=== PATIENT | female | born 1970 ===

== ENCOUNTER 2017-04-08 09:23 | Emergency (ER) | payer OTHER, SELFPAY ==
[2017-04-08 09:29] VITALS: BP 145/79; PULSE 76; TEMP 98; O2SAT 97
[2017-04-08 09:30] VITALS: BMI 38.9
[2017-04-08] MEDS ORDERED: Promethazine/Cod 6.25mg-10mg/5ml Syr UD PO STA (09:52)
[2017-04-08] MEDS ORDERED: Acetaminophen/Codeine elixir 120-12mg/5ml ONE (10:47)
[2017-04-08] MEDS ORDERED: Promethazine/Cod 6.25mg-10mg/5ml Syr UD ONE (10:56)
--- NOTE | 2017-04-08 10:59 | ED PDOC ---
HPI: CCC, URI, Sore Throat Time Seen by Provider: 04/08/17 09:36 Chief Complaint (Nursing): Cough, Cold, Congestion Chief Complaint (Provider): Cough, Cold, Congestion History Per: Patient History/Exam Limitations: no limitations Onset/Duration Of Symptoms: Days (x2 days) Current Symptoms Are (Timing): Still Present Additional Complaint(s): 46 y/o female with a past medical history of diabetes who presents to the emergency department with a complaint of a dry cough and sore throat x2 days. Associated with chills, body aches, headache, and nasal congestion. Reports she is not feeling that well and has constant pain in the throat due to dry cough. Denies difficulty swallowing or breathing, recent travel, or known sick contact. PMD: [facility] in [place], [place] Past Medical History Reviewed: Historical Data, Nursing Documentation, Vital Signs Vital Signs: Last Vital Signs Temp 98 F 04/08/17 09:28 Pulse 76 04/08/17 09:28 Resp BP 145/79 04/08/17 09:28 Pulse Ox 97 04/08/17 11:05 - Medical History PMH: Diabetes, Hypercholesterolemia Denies: HTN (denies) - Surgical History Surgical History: No Surg Hx - Family History Family History: States: Unknown Family Hx - Social History Current smoker - smoking cessation education provided: No Alcohol: None Drugs: Denies - Immunization History Hx Tetanus Toxoid Vaccination: No Hx Influenza Vaccination: No Hx Pneumococcal Vaccination: No - Home Medications Home Medications: Ambulatory Orders Medication Instructions Recorded Famotidine [Pepcid] 20 mg PO DAILY PRN #6 tab 06/12/14 Glimepiride 1 mg PO DAILY 06/12/14 Ibuprofen [Motrin] 600 mg PO Q8 PRN #6 tab 06/12/14 Metformin HCl [Metformin] 1,000 mg PO BID 06/12/14 Pravastatin Sodium [Pravastatin] 40 mg PO HS 06/12/14 Acetaminophen with Codeine 1 tab PO Q8H #10 tab 09/02/15 [Tylenol with Codeine No. 3 300 mg-30 mg] Azithromycin [Zithromax Z-Roberto] 250 mg PO DAILY #1 packet 11/26/15 Benzonatate 200 mg PO TID PRN #20 capsule 04/08/17 - Allergies Allergies/Adverse Reactions: Allergies Allergy/AdvReac Type Severity Reaction Status Date / Time No Known Allergies Allergy Verified 08/02/15 12:54 Review of Systems ROS Statement: Except As Marked, All Systems Reviewed And Found Negative Constitutional: Positive for: Chills, Other (Body aches) ENT: Positive for: Nose Congestion, Throat Pain (Sore throat). Negative for: Other (Difficulty swallowing) Respiratory: Positive for: Cough (Dry). Negative for: Other (Difficulty breathing) Neurological: Positive for: Headache Physical Exam - Reviewed Nursing Documentation Reviewed: Yes Vital Signs Reviewed: Yes - Physical Exam Appears: Positive for: Non-toxic, No Acute Distress Head Exam: Positive for: ATRAUMATIC, NORMAL INSPECTION, NORMOCEPHALIC Skin: Positive for: Normal Color, Warm, Dry Eye Exam: Positive for: Normal appearance, EOMI ENT: Positive for: Normal ENT Inspection, TM Is/Are (Clear). Negative for: Tonsillar Exudate, Tonsillar Swelling Neck: Positive for: Normal, Supple Cardiovascular/Chest: Positive for: Regular Rate, Rhythm. Negative for: Murmur Respiratory: Positive for: Normal Breath Sounds. Negative for: Accessory Muscle Use, Wheezing, Respiratory Distress Neurologic/Psych: Positive for: Alert, Oriented (x3) - ECG O2 Sat by Pulse Oximetry: 97 (RA) Pulse Ox Interpretation: Normal Medical Decision Making Medical Decision Making: Time: 09:51 Initial impression: Viral upper respiratory infection, Influenza like symptoms vs strep throat Initial plan: --Chest 2 views x-ray --Motrin 400 mg PO --Promethazine/Codeine 5 ml PO --Throat Culture --AccuCheck --Reevaluation Time: 09:55 --Glucose: 154 (H) Time: 10:30 --Influenza: Negative --Strep: Negative Time: 10:55 --Chest x-ray FINDINGS: LUNGS: Poor inspiration with low lung volumes, crowded bronchovascular markings and mild bibasilar atelectasis. . PLEURA: No significant pleural effusion identified. No pneumothorax apparent. CARDIOVASCULAR: Heart appears mildly enlarged. OSSEOUS STRUCTURES: Mild multilevel degenerative spondylosis of the thoracic spine. VISUALIZED UPPER ABDOMEN: Normal. OTHER FINDINGS: None. IMPRESSION: Poor inspiration with low lung volumes, crowded bronchovascular markings and mild bibasilar atelectasis. . Scribe Attestation: Documented by Kendra Long, acting as a scribe for Gareth Gaxiola MD. Provider Scribe Attestation: All medical record entries made by the Scribe were at my direction and personally dictated by me. I have reviewed the chart and agree that the record accurately reflects my personal performance of the history, physical exam, medical decision making, and the department course for this patient. I have also personally directed, reviewed, and agree with the discharge instructions and disposition. Disposition - Clinical Impression Clinical Impression: Cough, Upper respiratory infection - Patient ED Disposition Is Patient to be Admitted: No Doctor Will See Patient In The: Office Counseled Patient/Family Regarding: Studies Performed, Diagnosis, Need For Followup - Disposition Referrals: [facility] [Outside] Disposition: Routine/Home Disposition Time: 11:07 Condition: GOOD Additional Instructions: Take your medications as instructed. Take advil for pain. Follow up with your PCP in 2-3 days. Prescriptions: Benzonatate 200 mg PO TID PRN #20 capsule PRN Reason: Cough Instructions: Upper Respiratory Infection (ED)
== END 2017-04-08 11:32 | disposition home or self-care (01) ==
LOC: H.ER 09:23
DX: J06.9 Acute upper respiratory infection, unspecified (principal); E11.9 Type 2 diabetes mellitus without complications; Z79.84 Long term (current) use of oral hypoglycemic drugs

== ENCOUNTER 2018-04-03 14:23 | Emergency (ER) | payer SELFPAY ==
[2018-04-03 14:23] VITALS: BMI 38.9
[2018-04-03 14:37] VITALS: BP 131/82; PULSE 59; RESP 16; TEMP 98.1; O2SAT 98
[2018-04-03 16:09] LABS: SQUAMOUS EPITHIAL 5 /hpf (0-5); URINE BILIRUBIN NEGATIVE (NEGATIVE); URINE BLOOD NEGATIVE (NEGATIVE); URINE CLARITY SLIGHTY-CLOUDY (Clear); URINE COLOR STRAW (YELLOW); URINE GLUCOSE (UA) NEG (Normal); URINE LEUKOCYTE ESTERASE NEG Leu/uL (Negative); URINE PROTEIN NEGATIVE (NEGATIVE); URINE UROBILINOGEN 0.2-1.0 mg/dL (0.2-1.0)
[2018-04-03 16:24] LABS: BASO # 0.1 K/uL (0.0-0.2); BASO % 0.9 % (0.0-2.0); EOS # 0.1 K/uL (0.0-0.7); EOS % 1.4 % (0.0-4.0); HEMOGLOBIN 13.9 g/dL (12.0-16.0); LYMPH % 29.2 % (20.0-40.0); MEAN CELL VOLUME 83.9 fl (81.0-99.0); MEAN CORPUSCULAR HEMOGLOBIN 28.2 pg (27.0-31.0); MEAN CORPUSCULAR HGB CONC 33.7 g/dL (33.0-37.0); MONO # 0.9 K/uL (0.0-0.8); MONO % 8.4 % (0.0-10.0); NEUT # 6.1 K/uL (1.8-7.0); NEUT % 60.1 % (50.0-75.0); NRBC % 0.1 % (0.0-0.0); RBC 4.94 Mil/uL (3.80-5.20); RED CELL DISTRIBUTION WIDTH 13.4 % (11.5-14.5); WHITE BLOOD COUNT 10.2 K/uL (4.8-10.8)
[2018-04-03 16:34] LABS: ALB/GLOB RATIO 1.2 (1.0-2.1); ALBUMIN 4.3 g/dL (3.5-5.0); ALT/SGPT 72 U/L (9-52); AST/SGOT 58 U/L (14-36); BLOOD UREA NITROGEN 13 mg/dl (7-17); CALCIUM 9.3 mg/dL (8.4-10.2); GFR AFRICAN-AMERICAN > 60; GFR NON-AFRICAN AMERICAN > 60; LIPASE 72 U/L (23-300)
--- NOTE | 2018-04-03 17:24 | RAD ---
Date of service: 04/03/2018 HISTORY: possible admission COMPARISON: 04/08/2017 FINDINGS: LUNGS: No active pulmonary disease. PLEURA: No significant pleural effusion identified, no pneumothorax apparent. CARDIOVASCULAR: Normal. OSSEOUS STRUCTURES: No significant abnormalities. VISUALIZED UPPER ABDOMEN: Normal. OTHER FINDINGS: None. IMPRESSION: No active disease.
--- NOTE | 2018-04-03 17:59 | ED PDOC ---
HPI: Abdomen Time Seen by Provider: 04/03/18 14:56 Chief Complaint (Nursing): Abdominal Pain Chief Complaint (Provider): Abdominal Pain History Per: Patient History/Exam Limitations: no limitations Onset/Duration Of Symptoms: Days (x2) Current Symptoms Are (Timing): Still Present Location Of Pain/Discomfort: Epigastric Quality Of Discomfort: Unable To Describe Associated Symptoms: Back Pain Additional Complaint(s): 47 y/o female with a PMHx of diabetes presents to the ED complaining of worsening epigastric pain radiating to the left flank, onset two days ago. Patient states pain had been increasing to the point where she could not eat today. Patient reports of tolerating a small amount of tea otherwise is unable to eat. Patient states she has previously had a stomach infection and went to see someone for treatment of H-pylori and prescribed to take clarithromycin, amoxicillin and PPI. Patient states pain is worsening, thus prompting today's visit. Patient also reports of never having abdominal pain that radiates to the back in the past. Denies diarrhea and fever. PMD: [facility] Past Medical History Reviewed: Historical Data, Nursing Documentation, Vital Signs Vital Signs: Last Vital Signs Temp 98.1 F 04/03/18 14:34 Pulse 59 L 04/03/18 14:34 Resp 16 04/03/18 14:34 BP 131/82 04/03/18 14:34 Pulse Ox 98 04/03/18 18:54 - Medical History PMH: Diabetes, Hypercholesterolemia Denies: HTN (denies) - Surgical History Surgical History: No Surg Hx - Family History Family History: States: Unknown Family Hx - Immunization History Hx Tetanus Toxoid Vaccination: No Hx Influenza Vaccination: No Hx Pneumococcal Vaccination: No - Home Medications Home Medications: Ambulatory Orders Medication Instructions Recorded Famotidine [Pepcid] 20 mg PO DAILY PRN #6 tab 06/12/14 Glimepiride 1 mg PO DAILY 06/12/14 Ibuprofen [Motrin] 600 mg PO Q8 PRN #6 tab 06/12/14 Metformin HCl [Metformin] 1,000 mg PO BID 06/12/14 Pravastatin Sodium [Pravastatin] 40 mg PO HS 06/12/14 Acetaminophen with Codeine 1 tab PO Q8H #10 tab 09/02/15 [Tylenol with Codeine No. 3 300 mg-30 mg] Azithromycin [Zithromax Z-Roberto] 250 mg PO DAILY #1 packet 11/26/15 Benzonatate 200 mg PO TID PRN #20 capsule 04/08/17 Acetaminophen [Tylenol Extra 500 mg PO Q6 #28 tablet 04/03/18 Strength] oxyCODONE/Acetaminophen [Percocet 1 ea PO Q6 #6 tab 04/03/18 5/325 mg Tab] - Allergies Allergies/Adverse Reactions: Allergies Allergy/AdvReac Type Severity Reaction Status Date / Time No Known Allergies Allergy Verified 08/02/15 12:54 Review of Systems ROS Statement: Except As Marked, All Systems Reviewed And Found Negative Constitutional: Negative for: Fever Gastrointestinal: Positive for: Abdominal Pain, Other (decreased PO intake). Negative for: Diarrhea Musculoskeletal: Positive for: Back Pain (left flank) Physical Exam - Reviewed Nursing Documentation Reviewed: Yes Vital Signs Reviewed: Yes - Physical Exam Appears: Positive for: No Acute Distress (Obese), Uncomfortable Cardiovascular/Chest: Positive for: Regular Rate, Rhythm. Negative for: Murmur Respiratory: Positive for: Normal Breath Sounds. Negative for: Respiratory Distress Gastrointestinal/Abdominal: Positive for: Normal Exam, Soft, Tenderness ( Epigastric and right upper quadrant tenderness; No suprapubic, right lower quadrant and left lower quadrant tenderness. ), Other ((+) [place] ) Back: Positive for: Normal Inspection. Negative for: L CVA Tenderness, R CVA Tenderness Neurologic/Psych: Positive for: Alert, Oriented - Laboratory Results Result Diagrams: 04/03/18 16:19 04/03/18 16:19 - ECG O2 Sat by Pulse Oximetry: 98 (RA) Pulse Ox Interpretation: Normal Medical Decision Making Medical Decision Making: Time: 1533 Impression: Gastritis vs cholecystitis Plan: -- GI Cocktail given for pain -- Labs sent -- Consider US if elevated LFTs -- Re-assess patient -- Pepcid 20 mg IVP -- Pantoprazole 40 mg IVP -- Reglan 5 mg PO -- CXR Portable -- EKG Time: 161 Plan: -- Beta-HCG, Quantitative -- CMP -- Lipase -- CBC with differentials -- Urinalysis Time: 165 Plan: -- Labs demonstrate elevated LFTs. Patient to be given Toradol for worsened pain and US for cholecystitis workup. -- US Abdomen Complete -- Toradol 30 mg IVP -- Discussed findings with patient and further plan. Patient advised to not drink or eat anything. Time: 1823 US ABDOMEN RESULTS FINDINGS: Liver: Enlarged, 18.5 cm. Normal echogenicity. No mass. No intrahepatic bile duct dilatation. Gallbladder: No gallstones. No wall thickening. No pericholecystic fluid. No sonographic Morgan's sign. Common bile duct: No dilatation. No stones. Pancreas: Unremarkable as visualized. Kidneys: Normal echogenicity. No significant hydronephrosis. Spleen: No splenomegaly. Aorta: Unremarkable. No aneurysm. Inferior vena cava: Unremarkable. Free fluid: No significant free fluid. IMPRESSION: 1. No acute findings. 2. Non-acute findings are described above. Thank you for allowing us to participate in the care of your patient. Dictated and Authenticated by: Jose Carlos Montelongo MD 04/03/2018 6:23 PM Eastern Time ([place] & [place]) Pt with imrpoved symptoms. CT showed enlarged liver but no gallbladder abnormalities. Pt now tolerating PO and pain improved. Findings of elevated liver enzymes and enlarged liver discussed with the patient. Pt expressed understanding of the importance of close follow up and will return to the emergency department if pain, vomiting, fever, or other new symptoms develop. Scribe Attestation: Documented by Sherine Weeks acting as a scribe for Dr. Micaela Tejada MD. Provider Scribe Attestation: All medical record entries made by the Scribe were at my direction and personally dictated by me. I have reviewed the chart and agree that the record accurately reflects my personal performance of the history, physical exam, medical decision making, and the department course for this patient. I have also personally directed, reviewed, and agree with the discharge instructions and disposition. Disposition - Clinical Impression Clinical Impression: Transaminitis, Abdominal tenderness, Gastritis - Disposition Referrals: [facility] [Outside] Disposition: Routine/Home Disposition Time: 18:54 Condition: IMPROVED Additional Instructions: Take Tylenol for pain. Take Percocet only for severe pain. Do not take Tylenol if you take Percocet because they both contain acetominphen which can cause liver damage in high doses. FOllow up with primary medical doctor in one week. Return to the emergeny department if symptoms worsen or if new symptoms develop. Prescriptions: Acetaminophen [Tylenol Extra Strength] 500 mg PO Q6 #28 tablet oxyCODONE/Acetaminophen [Percocet 5/325 mg Tab] 1 ea PO Q6 #6 tab Forms: [employer] (Bulgarian), [employer] (Vietnamese) Print Language: WELSH
--- NOTE | 2018-04-04 08:48 | CARD ---
APPROVED REPORT Date of service: 04/03/2018 EKG Measurement Heart [id number] <Conclusion> Sinus bradycardia Otherwise normal ECG
--- NOTE | 2018-04-04 11:25 | US ---
Date of service: 04/03/2018 HISTORY: Diffuse abdominal pain. Worse right upper quadrant COMPARISON: Abdomen ultrasound 10/08/2016. TECHNIQUE: Sonographic evaluation of the abdomen. FINDINGS: LIVER: Measures 18.5 cm. Normal echogenicity of the liver parenchyma. No mass. No intrahepatic bile duct dilatation. GALLBLADDER: Gallbladder appears mildly distended without mural thickening or pericholecystic fluid collection. No cholelithiasis. No sonographic Morgan sign reported. COMMON BILE DUCT: Measures 4.9 mm. No stones. No dilatation. PANCREAS: The tail of the pancreas is obscured by overlying bowel gas with remainder unremarkable. Visualized pancreas remains somewhat echogenic potentially reflecting fatty atrophy. RIGHT KIDNEY: Measures 11.5cm. Normal echogenicity. No calculus, mass, or hydronephrosis. LEFT KIDNEY: Measures 11.8cm. Normal echogenicity. No calculus, mass, or hydronephrosis. SPLEEN: Normal in size and contour, measuring 8.9 cm. No mass. AORTA: No aneurysmal dilatation. IVC: Unremarkable. OTHER FINDINGS: None. IMPRESSION: 1. Hepatic steatosis pattern not definitively shown at this time. No hepatic mass or prominent intrahepatic biliary dilatation appreciable. 2. Distended but otherwise unremarkable appearing gallbladder. 3. Probable fatty replaced of the pancreas reiterated however the tail is obscured by overlying bowel gas and is not seen. Concordant preliminary report from [facility], 04/03/2018.
== END 2018-04-03 19:00 | disposition home or self-care (01) ==
LOC: H.ER 14:23
DX: R74.0 Nonspecific elevation of levels of transaminase and lactic acid dehydrogenase [LDH] (principal); R10.13 Epigastric pain; K29.70 Gastritis, unspecified, without bleeding
CPT/HCPCS: 71045; 76700; 80053; 81003; 81025; 83690; 84702; 85025; 93005; 96374; 96375; 99284; C9113; J1885

== ENCOUNTER 2019-01-03 10:22 | Emergency (ER) | payer SELFPAY ==
[2019-01-03 10:25] VITALS: BMI 48.6
[2019-01-03 10:26] VITALS: TEMP 98.4; O2SAT 96
--- NOTE | 2019-01-03 11:08 | ED PDOC ---
HPI: Back Time Seen by Provider: 01/03/19 10:37 Chief Complaint (Nursing): Back Pain Chief Complaint (Provider): back pain History Per: Patient History/Exam Limitations: no limitations Onset/Duration Of Symptoms: Days Current Symptoms Are (Timing): Still Present Quality Of Discomfort: "Pain" Severity: Moderate Pain Scale Rating Of: 7 Previous Symptoms: Back Pain Associated Symptoms: None Exacerbating Factor(s): Turning, Movement, Sitting, Standing Additional History Per: Patient Additional Complaint(s): 48 year old female with history of diabetes presents to the ED with complaints of left lower back pain radiating down to the left glute and upper thigh. Patient states it started Wednesday morning while walking through a flea market and progressed throughout the day. She reports she took advil two tabs on Wednesday with minimal relief and one percocet last night, she reports she was able to sleep but upon rising from bed this morning pain was still present which prompted ED visit. Patient states pain is worse with movement and she upon ambulation she reports she feels better walking hunched over because pain worsens as she tries to straightened her back. She denies urinary symptoms, f ever, nausea or vomiting. Past Medical History Reviewed: Historical Data, Nursing Documentation, Vital Signs Vital Signs: Last Vital Signs Temp 98.4 F 01/03/19 10:25 Pulse 69 01/03/19 10:25 Resp 17 01/03/19 10:25 BP 150/72 01/03/19 10:25 Pulse Ox 96 01/03/19 10:25 Primary Care Provider: FAMILY PROVIDER,NO - Medical History PMH: No Chronic Diseases, Diabetes, Hypercholesterolemia Denies: HTN (denies) - Surgical History Surgical History: No Surg Hx - Family History Family History: States: Unknown Family Hx - Living Arrangements Living Arrangements: With Family - Social History Alcohol: None Drugs: Denies - Immunization History Hx Tetanus Toxoid Vaccination: No Hx Influenza Vaccination: No Hx Pneumococcal Vaccination: No - Home Medications Home Medications: Ambulatory Orders Medication Instructions Recorded Famotidine [Pepcid] 20 mg PO DAILY PRN #6 tab 06/12/14 Glimepiride 1 mg PO DAILY 06/12/14 Ibuprofen [Motrin] 600 mg PO Q8 PRN #6 tab 06/12/14 Metformin HCl [Metformin] 1,000 mg PO BID 10/28/14 Pravastatin Sodium [Pravastatin] 40 mg PO HS 06/12/14 Acetaminophen with Codeine 1 tab PO Q8H #10 tab 09/02/15 [Tylenol with Codeine No. 3 300 mg-30 mg] Azithromycin [Zithromax Z-Roberto] 250 mg PO DAILY #1 packet 11/26/15 Benzonatate 200 mg PO TID PRN #20 capsule 04/08/17 Acetaminophen [Tylenol Extra 500 mg PO Q6 #28 tablet 04/03/18 Strength] oxyCODONE/Acetaminophen [Percocet 1 ea PO Q6 #6 tab 04/03/18 5/325 mg Tab] Cyclobenzaprine [Cyclobenzaprine 10 mg PO Q8H PRN #15 tab 01/03/19 HCl] Lidocaine 5% [Lidoderm] 1 ea TOP Q12H PRN #10 patch 01/03/19 Naproxen [Naprosyn Tab] 500 mg PO Q12H PRN #30 tab 01/03/19 - Allergies Allergies/Adverse Reactions: Allergies Allergy/AdvReac Type Severity Reaction Status Date / Time No Known Allergies Allergy Verified 01/03/19 10:33 Review of Systems ROS Statement: Except As Marked, All Systems Reviewed And Found Negative Constitutional: Negative for: Fever, Chills, Sweats, Weakness, Malaise Cardiovascular: Negative for: Chest Pain, Palpitations Gastrointestinal: Negative for: Nausea, Vomiting, Abdominal Pain, Diarrhea, Constipation Genitourinary Female: Negative for: Dysuria, Hematuria Musculoskeletal: Positive for: Back Pain (left lower back pain rad to left glute and upper thigh) Neurological: Negative for: Weakness, Numbness, Confusion, Dizziness Physical Exam - Reviewed Nursing Documentation Reviewed: Yes Vital Signs Reviewed: Yes - Physical Exam Appears: Positive for: Well, Non-toxic, No Acute Distress Head Exam: Positive for: ATRAUMATIC, NORMAL INSPECTION, NORMOCEPHALIC Skin: Positive for: Normal Color, Warm, DRY Eye Exam: Positive for: Normal appearance, PERRL ENT: Positive for: Normal ENT Inspection Neck: Positive for: Normal, Painless ROM, Supple Cardiovascular/Chest: Positive for: Regular Rate, Rhythm, Chest Non Tender Respiratory: Positive for: CNT, Normal Breath Sounds Pulses-Femoral (L): 2+ Pulses-Femoral (R): 2+ Pulses-Radial (L): 2+ Pulses-Radial (R): 2+ Gastrointestinal/Abdominal: Positive for: Normal Exam, Bowel Sounds (normative ), Soft. Negative for: Tenderness, Distended Pelvic Exam: Positive for: External Exam Normal Back: Positive for: Normal Inspection, L CVA Tenderness. Negative for: Vertebral Tenderness Extremity: Positive for: Normal ROM. Negative for: Tenderness Neurological/Psych: Positive for: Awake, Alert, Normal Tone, Oriented - Laboratory Results Urine POC: Negative Urine dip results: Positive for: Ketones (TRACE), Glucose (500). Negative for: Leukocyte Esterase, Blood, Nitrate, Bilirubin, Protein - ECG O2 Sat by Pulse Oximetry: 96 Medical Decision Making Medical Decision Making: --UDIP --UA --U PREG --ACCUCHECK 228 11:19 URINE DIP NEGATIVE FOR BLOOD, LEUKS AND NITRATES, PAIN MOST LIKELY RELATED TO MUSCULAR VS SCIATIC NERVE PAIN, TORADOL AND FLEXERIL AND RE-EVAL. 1300 Upon re-eval patient reports pain minimally improved. While laying in bed patient denies pain. Pain elicited with movement and ambulation. patient to be given tramadol PO and re-eval. 13:49 Patient sleeping, easily arousable, patient states pain improved. patient able to get out bed with ease. No futher work-up needed in ED. patient stable for D/C home. Impression: Sciatic Nerve Pain Rx given for Naproxen, Flexeril and Lidoderm. patient instructed not to take flexeril while driving or operating heavy machinery. patient states understanding and agrees with plan. Disposition - Clinical Impression Clinical Impression: Sciatic nerve pain - Patient ED Disposition Is Patient to be Admitted: No Counseled Patient/Family Regarding: Diagnosis, Need For Followup, Rx Given - Disposition Referrals: [facility] [Outside] Disposition: Routine/Home Disposition Time: 13:49 Condition: IMPROVED Prescriptions: Cyclobenzaprine [Cyclobenzaprine HCl] 10 mg PO Q8H PRN #15 tab PRN Reason: Muscle Spasm Lidocaine 5% [Lidoderm] 1 ea TOP Q12H PRN #10 patch PRN Reason: Pain, Moderate (4-7) Naproxen [Naprosyn Tab] 500 mg PO Q12H PRN #30 tab PRN Reason: Pain, Moderate (4-7) Instructions: Sciatica (DC), Sciatica Exercises Forms: [employer] (Japanese) Print Language: FRENCH - POA Present On Arrival: None
[2019-01-03 11:33] LABS: SQUAMOUS EPITHIAL 6 /hpf (0-5); URINE BACTERIA RARE (<OCC); URINE BILIRUBIN NEGATIVE (NEGATIVE); URINE BLOOD NEGATIVE (NEGATIVE); URINE CLARITY SLIGHTY-CLOUDY (Clear); URINE COLOR YELLOW (YELLOW); URINE GLUCOSE (UA) >=500 mg/dL (NEGATIVE); URINE LEUKOCYTE ESTERASE TRACE Leu/uL (Negative); URINE PROTEIN NEGATIVE (NEGATIVE); URINE UROBILINOGEN 0.2-1.0 mg/dL (0.2-1.0)
[2019-01-03 13:52] VITALS: BP 128/69; PULSE 58; RESP 18
== END 2019-01-03 15:29 | disposition home or self-care (01) ==
LOC: H.ER 10:22
DX: M54.30 Sciatica, unspecified side (principal); E11.9 Type 2 diabetes mellitus without complications; Z79.84 Long term (current) use of oral hypoglycemic drugs
CPT/HCPCS: 81003; 81025; 82948; 96372; 99284; J1885